=== PATIENT | female | born 1970 | race Caucasian/White ===

== ENCOUNTER 2019-03-20 14:45 | Emergency (ER) | payer MEDICAID ==
[~2019-03-20] VITALS: Ht 175.3 cm; Wt 54.5 kg
[2019-03-20 14:54] VITALS: Ht 175.3 cm; Wt 54.5 kg
[2019-03-20] MEDS ORDERED: TOPAMAX200 MG PO ×2 (15:01→15:02)
[2019-03-20] MEDS ORDERED: ZOFRAN4 MG PO (15:02)
[2019-03-20] MEDS ORDERED: MOBIC7.5 MG PO (15:02)
[2019-03-20] MEDS ORDERED: CYCLOBENZAPRINE10 MG PO (15:03)
[2019-03-20] MEDS ORDERED: ESTRACE2 MG (15:03)
[2019-03-20] MEDS ORDERED: LYRICA200 MG PO (15:04)
[2019-03-20] MEDS ORDERED: DILAUDID4 MG PO (15:04)
[2019-03-20] MEDS ORDERED: EFFEXOR XR37.5 MG PO (15:04)
[2019-03-20] MEDS ORDERED: CLARITIN 10 MG10 MG PO (15:05)
[2019-03-20] MEDS ORDERED: POLYTRIM EYE DR10 ML EACH EYE (15:05)
[2019-03-20] MEDS ORDERED: LEVOXYL100 MCG PO (15:05)
[2019-03-20 15:29] LABS: BASOPHILS 0.9 % (0-2); EOSINOPHILS 2.1 % (0-7); HEMATOCRIT 37.2 % (36.0-48.0); IMMATURE GRANULOCYTES 0.3 % (0-5); LYMPHOCYTES 33.1 % (15-50); MCHC 32.3 g/dL (31.0-37.0); MCV 96.1 fL (80.0-100.0); MEAN PLATELET VOLUME 10.7 fL (7.4-10.4); MONOCYTES 6.4 % (2-11); NEUTROPHILS 57.2 % (40-80); PLATELET COUNT 124 10x3/uL (130-400); RBC 3.87 10x6/uL (4.00-5.40); RDW 13.6 % (11.5-14.5); WBC 3.3 10x3/uL (4.8-10.8)
[2019-03-20 15:41] LABS: APTT 29.6 SECONDS (22.8-39.4); INR 1.03 (0.85-1.17)
[2019-03-20 15:46] LABS: CALC OSMOLALITY 275 mosm/kg (275-300); CALCIUM 8.6 mg/dL (8.5-10.1); CARBON DIOXIDE 27.9 mmol/L (21.0-32.0); CHLORIDE - SERUM 105 mmol/L (98-107); CREATININE - SERUM 0.9 mg/dL (0.6-1.3); GLUCOSE 84 mg/dL (74-106); POTASSIUM - SERUM 4.4 mmol/L (3.5-5.1); SODIUM 137 mmol/L (136-145); UREA NITROGEN 22 mg/dL (7-18); eGFR NON AFRICAN AMERICAN 70 mL/min (90-120)
[2019-03-20 16:13] LABS: ALKALINE PHOSPHATASE 73 U/L (46-116); ALT (SGPT) 11 U/L (10-68); BILIRUBIN - TOTAL 0.24 mg/dL (0.2-1.3); CREATINE KINASE 89 UL (21-215); MAGNESIUM - SERUM 2.3 mg/dL (1.8-2.4); PROTEIN - SERUM 6.1 g/dL (6.4-8.2); THYROID STIMULATING HORMONE 0.19 uIU/mL (0.36-3.74)
[2019-03-20 16:14] LABS: TROPONIN-I < 0.017 ng/mL (0.000-0.060)
[2019-03-20 16:40] LABS: APPEARANCE CLEAR (CLEAR); BILIRUBIN NEGATIVE (NEGATIVE); COLOR YELLOW (YELLOW); GLUCOSE NEGATIVE (NEGATIVE); KETONE NEGATIVE (NEGATIVE); NITRITE NEGATIVE (NEGATIVE); PROTEIN NEGATIVE (NEGATIVE); SPECIFIC GRAVITY 1.015 (1.005-1.020); UROBILINOGEN NORMAL (NORMAL)
[2019-03-20 16:51] LABS: UDS - AMPHET NEGATIVE QUAL (NEGATIVE); UDS - BARB NEGATIVE QUAL (NEGATIVE); UDS - BENZO NEGATIVE QUAL (NEGATIVE); UDS - COCAINE NEGATIVE QUAL (NEGATIVE); UDS - OPIATE POSITIVE QUAL (NEGATIVE); UDS - PCP NEGATIVE QUAL (NEGATIVE); UDS - THC NEGATIVE QUAL (NEGATIVE)
[2019-03-20 17:01] VITALS: BP 125/82
== END 2019-03-20 22:02 | disposition other institution (70) ==
LOC: D.ER 14:45
PROVIDERS: Family Medicine
DX: R41.82 Altered mental status, unspecified (principal)